=== PATIENT | male | born 1950 ===

== ENCOUNTER → 2018-07-08 06:14 | Day surgery (SDC) | payer MEDICARE, BC ==
--- NOTE | 2018-06-29 00:16 | HP ---
AMENDED REPORT NOW INCLUDES DESIGNATED COSIGNER CC: Dr. Caldwell, [place]; Dr. Alberto Clarke; Dr. Daniel, [facility] * ADMISSION HISTORY AND PHYSICAL: DATE OF ADMISSION: 07/08/18 PRIMARY CARE PHYSICIAN: Dr. Caldwell. ATTENDING SURGEON: Dr. Ede Black.* (DICTATED BY KAMALA MERA) CHIEF COMPLAINT: Nonhealing left scapular wound. HISTORY OF PRESENT ILLNESS: This is a 68-year-old male, who underwent excision of a melanoma of the left scapula in February of 2017 that was performed in [place]. He had the dehiscence of the wound and has been treated through the wound center with wound VAC but the wound has continued to reopen. He had been seen by Dr. Black in the spring and more recently on 06/14/18, at which time, the wound which was only open superficially but over an area up to 6 cm wide and 15 cm in length. Recommendations were made for excision of the wound and closure and it was felt that this could be accomplished as a primary closure most likely. The patient understands there is also possibility of requiring a skin graft. Currently, the wound is being treated with topical dressing with bacitracin. PAST MEDICAL HISTORY: Stroke in 2017 with resultant memory loss and left-sided weakness though he has made progress and can ambulate with a cane or walker. He has a history of coronary artery disease status post DC and a history of hypertension and bradycardia. He does have an implanted event monitor. He was seen for Cardiology evaluation by Dr. Clarke and no further workup was deemed necessary for his upcoming surgery (see separate consult). He has significant peripheral edema and has had cellulitis in the past including a positive MRSA infection of the left ankle though no current problem with infection. He is diabetic and is also treated for depression. He is blind in the left eye. He is treated for GERD. PAST SURGICAL HISTORY: Excision of melanoma with sentinel lymph node biopsy, 2016. He apparently also underwent an open partial hepatectomy for a hepatocellular carcinoma also in [place]. His understanding is that both cancers were early stage and there is no active disease. CURRENT MEDICATIONS: 1. Flomax 0.4 mg once daily at h.s. 2. Florastor 1 tablet b.i.d. 3. Gabapentin 100 mg q.h.s. 4. Lantus 14 units subcutaneously q.h.s. 5. Lasix 60 mg q.a.m. 6. Losartan 100 mg q. day. 7. Pepcid 20 mg b.i.d. 8. Senna 2 tablets q.h.s. 9. Aspirin 325 mg q. day (to be continued perioperatively). 10. Atorvastatin 10 mg q.h.s. 11. Colace 100 mg b.i.d. 12. Duloxetine 60 mg q. day. 13. Dulcolax and milk of magnesia p.r.n. DRUG ALLERGIES: NOVOCAIN (increased heart rate). FAMILY HISTORY: Noncontributory in terms of anesthesia problems, bleeding or a clotting disorder. SOCIAL HISTORY: The patient is currently a resident at [facility]. He denies use of tobacco, alcohol, or recreational drugs. REVIEW OF SYSTEMS: General: No recent constitutional symptoms or acute illnesses other than described above. He states that his weight is fairly stable in that a large portion of it is fluid retention. HEENT: No problems reported other than blindness in the left eye. Cardiovascular: As above. See also attached Cardiology evaluation. Respiratory: No history of chronic cough , shortness of breath, asthma, or COPD. GI: History of GERD. I did not inquire regarding colonoscopy or lower GI symptoms. He apparently does have a history of constipation. History of hepatocellular carcinoma as noted above. : No problems reported other than he is treated for BPH. Endocrine: He is treated for diabetes. No history of thyroid dysfunction. PHYSICAL EXAMINATION GENERAL: Well-nourished, obese male, seated in the wheelchair, in no acute distress. VITAL SIGNS: Height 5 feet 7 inches, weight 260 pounds. Temperature 96.7, blood pressure 124/70, pulse 58, respirations 16. HEENT: Right pupil reactive. EOMs intact. Oropharynx: No intraoral lesions. NECK: No lymphadenopathy, thyromegaly, or masses. LUNGS: Clear to auscultation. No rales or wheezes. HEART: Regular rate and rhythm. No murmur appreciated. There is a palpable implanted event monitor in the left lower chest subcutaneously. ABDOMEN: Obese, soft, nontender to palpation. No palpable masses or organomegaly though exam is limited. There is a well-healed right upper quadrant incision. BACK: No spinous process or CVA tenderness. EXTREMITIES: 1 to 2+ edema though he does have compression stockings in place. By history, there are no open lesions at the present time. Peripheral pulses were not checked. NEUROLOGICAL: He is oriented though states he has poor memory for details such as names and dates. He has some weakness and dysarthria of the left upper extremity and some generalized weakness in the left lower extremity, but he is able to stand on his own with limited assistance. Specific neurological exam not performed. SKIN: Warm and dry. He does have a facial rash. No suspicious rashes or lesions. See also above in the HPI per Dr. Black's description of the left scapular wound. IMPRESSION: Nonhealing left scapular wound. PLAN: Excision and closure of nonhealing left scapular wound (with possible skin graft). KAMALA MERA [id number]/[facility] #: [id number] BUTCH
[~2018-07-08 06:14] MED LIST: Atracurium* 10 MG/ML 10 ML VIAL ONE; Bacitracin OINTMENT* 0.5% 0.5 oz TUBE ONE; Buffered Lidocaine 0.9% SYRIN* 5 ML/SYR SYRINGE INTRADERM ONE; Bupivacaine 0.25% SDV* 30 ML ONE; DiMENhydriNATE IV* 50 MG/ML VIAL IV PUSH PRN; EPHEDrine (Pressors)* 50 MG/ML VIAL ONE; Famotidine IV* 10 MG/ML 2 ML (20 mg) IV ONE; Glycopyrrolate IV* 0.2 MG/ML 1 ML VIAL ONE; KETAMINE HCL* 50 MG/ML 10 ML VIAL ONE; Lidocaine 1% MPF wEPI 200,000* 30 ML SDV ONE; Lidocaine 2% JELLY* 6 ML JELLY TOPICAL ONE; Lidocaine 2% PF * 5 ML VIAL ONE; Midazolam* 1 MG/ML 5 ML VIAL (5 MG) ONE; Morphine VIAL* 4 MG/ML VIAL (1 ml vial) IV PRN; Naloxone* 0.4 MG/ML 1 ML VIAL IV PRN; Neostigmine Methylsulfate* 1 MG/ML 10 ML VIAL (1 mg/ml) ONE; Ondansetron ODT TAB* 4 MG ONE; Ondansetron TAB* 4 MG PO ONE; PROCHLORPERAZINE INJ 5 MG/ML 2 ML VIAL IV PRN; Phenylephrine INJ* 10 MG/ML 1 ML VIAL (10 MG) ONE; Propofol* 10 MG/ML 20 ML BTL IV PUSH ONE; ceFAZolin 1 GM VIAL(*) ONE; ceFAZolin 2 GM PREMIX in ORs 0 GM/0 ML BAG IVPB ONE; fentaNYL* 50 MCG/ML 2 ML VIAL (100 MCG VIAL) IV PRN; fentaNYL* 50 MCG/ML 2 ML VIAL (100 MCG VIAL) ONE; oxyCODONE/Acetamin 5/325 MG* TAB PO PRN
[2018-07-08 11:11] VITALS: BP 147/73
--- NOTE | 2018-07-09 09:40 | OP ---
CC: Dr. Александр Caldwell; Dr. Danile in the [facility] * DATE OF OPERATION: 07/08/18 - [facility] DATE OF : 52 SURGEON: Ede Black MD FIELD NATURALIST: None. ANESTHESIOLOGIST: Dr. Bolton. ANESTHESIA: General anesthetic. PRE-OP DIAGNOSIS: Nonhealing wound of left scapular region. POST-OP DIAGNOSIS: Nonhealing wound of left scapular region. OPERATIVE PROCEDURE: Excision of nonhealing wound with primary closure. DESCRIPTION OF PROCEDURE: The patient under general anesthetic was placed in the prone position, appropriately padded and positioned and the left scapular region and back were prepped with antiseptic, draped in a sterile fashion. Elliptical incision approximately 8 x 15 cm was created and the entire previous open wound was excised down to the muscle fascia. This was sent in formalin to pathologic evaluation. Flaps were undermined inferior and superiorly and then closure was accomplished using [id number] 2-0 Vicryl for the subdermal tissues and then 2-0 Prolene vertical mattress for the skin followed by antibiotic ointment and a gauze dressing. He was brought to recovery in good condition. There were no complications. No drains. Pathologic specimen is wound excision. Complications none. Estimated blood loss less than 50 mL. [id number]/[facility] #: [id number] [facility] HOSPITALMyranda
== END | disposition home or self-care (01) ==
LOC: OR 06:14
PROVIDERS: ATTEND Surgery
DX: L98.498 Non-pressure chronic ulcer of skin of other sites with other specified severity (principal); T81.89XA Other complications of procedures, not elsewhere classified, initial encounter; Z85.820 Personal history of malignant melanoma of skin; Z85.05 Personal history of malignant neoplasm of liver; I25.2 Old myocardial infarction; I69.254 Hemiplegia and hemiparesis following other nontraumatic intracranial hemorrhage affecting left non-dominant side; I25.10 Atherosclerotic heart disease of native coronary artery without angina pectoris; I10 Essential (primary) hypertension; R00.1 Bradycardia, unspecified; E11.9 Type 2 diabetes mellitus without complications; Z79.4 Long term (current) use of insulin; F32.9 Major depressive disorder, single episode, unspecified
CPT/HCPCS: 88305; A9270-GY; J0690; J2001; J2250; J2704; J2710; J3010

== ENCOUNTER → 2019-10-03 09:05 | Day surgery (SDC) | payer MEDICARE, BC ==
[~2019-10-03 09:05] MED LIST changes: -Atracurium* 10 MG/ML 10 ML VIAL ONE; -Bacitracin OINTMENT* 0.5% 0.5 oz TUBE ONE; -Buffered Lidocaine 0.9% SYRIN* 5 ML/SYR SYRINGE INTRADERM ONE; -Bupivacaine 0.25% SDV* 30 ML ONE; -DiMENhydriNATE IV* 50 MG/ML VIAL IV PUSH PRN; +Diazepam TAB(*) 5 MG PO ONE; -EPHEDrine (Pressors)* 50 MG/ML VIAL ONE; -Famotidine IV* 10 MG/ML 2 ML (20 mg) IV ONE; -Glycopyrrolate IV* 0.2 MG/ML 1 ML VIAL ONE; -KETAMINE HCL* 50 MG/ML 10 ML VIAL ONE; -Lidocaine 1% MPF wEPI 200,000* 30 ML SDV ONE; -Lidocaine 2% JELLY* 6 ML JELLY TOPICAL ONE; -Lidocaine 2% PF * 5 ML VIAL ONE; -Midazolam* 1 MG/ML 5 ML VIAL (5 MG) ONE; -Morphine VIAL* 4 MG/ML VIAL (1 ml vial) IV PRN; +NS 0.9% 1000 ML** 1,000 ML IV SCH; -Naloxone* 0.4 MG/ML 1 ML VIAL IV PRN; -Neostigmine Methylsulfate* 1 MG/ML 10 ML VIAL (1 mg/ml) ONE; -Ondansetron ODT TAB* 4 MG ONE; -Ondansetron TAB* 4 MG PO ONE; -PROCHLORPERAZINE INJ 5 MG/ML 2 ML VIAL IV PRN; -Phenylephrine INJ* 10 MG/ML 1 ML VIAL (10 MG) ONE; -Propofol* 10 MG/ML 20 ML BTL IV PUSH ONE; -ceFAZolin 1 GM VIAL(*) ONE; -ceFAZolin 2 GM PREMIX in ORs 0 GM/0 ML BAG IVPB ONE; +ceFAZolin VIAL 1 GM in NS *SYRINGE * * 10 ML ONE; +ceFAZolin* 2 GM* ONE DOSE (Duplex) IVPB; -fentaNYL* 50 MCG/ML 2 ML VIAL (100 MCG VIAL) IV PRN; -fentaNYL* 50 MCG/ML 2 ML VIAL (100 MCG VIAL) ONE; -oxyCODONE/Acetamin 5/325 MG* TAB PO PRN
[2019-10-03 10:22] VITALS: BP 146/70
== END | disposition home or self-care (01) ==
LOC: CHICATH 09:05
PROVIDERS: ATTEND Specialist
DX: R00.1 Bradycardia, unspecified (principal); I48.91 Unspecified atrial fibrillation; Z79.01 Long term (current) use of anticoagulants; Z53.09 Procedure and treatment not carried out because of other contraindication
CPT/HCPCS: J0690

== ENCOUNTER 2019-10-10 11:02 | Observation (INO) | payer MEDICARE, BC ==
[2019-10-10] MEDS ORDERED: ceFAZolin 1 GM/10 ML flush(*) SYRINGE for pocket flush (cardiology) FLUSH ONE (12:00)
[2019-10-10] MEDS ORDERED: Diazepam TAB(*) 5 MG PO ONE (12:00)
[2019-10-10] MEDS ORDERED: ceFAZolin* 2 GM* ONE DOSE (Duplex) IVPB (12:00)
[2019-10-10] MEDS ORDERED: NS 0.9% 1000 ML** 1,000 ML IV SCH (12:00)
[2019-10-10] MEDS ORDERED: Diazepam TAB(*) 5 MG ONE (12:31)
[2019-10-10] MEDS ORDERED: ceFAZolin 2 GM in NS 100 ml - ONCE (Pharmacy Admix) IVPB ONE (13:00)
[2019-10-10] MEDS ORDERED: Lidocaine 1% INJ* 10 MG/ML 30 ML SDV ONE (13:36)
[2019-10-10] MEDS ORDERED: Naloxone* 0.4 MG/ML 1 ML VIAL ONE (13:37)
[2019-10-10] MEDS ORDERED: fentaNYL* 50 MCG/ML 2 ML VIAL (100 MCG VIAL) ONE (13:37)
[2019-10-10] MEDS ORDERED: Midazolam* 1 MG/ML 5 ML VIAL (5 MG) ONE (13:37)
[2019-10-10] MEDS ORDERED: Flumazenil* 0.1 MG/ML 5 ML MDV ONE (13:38)
[2019-10-10] MEDS ORDERED: oxyCODONE/Acetamin 5/325 MG* TAB PO PRN (14:53)
[2019-10-10] MEDS ORDERED: Acetaminophen TAB* 325 MG PO PRN (14:53)
[2019-10-10] MEDS: ceFAZolin 1 GM ADVAN(*) 1 GM in NS 0.9% 50 ML* 50 ML IVPB SCH (23:00)
--- NOTE | 2019-10-11 02:13 | OP ---
DATE OF OPERATION: 10/10/19 - ROOM #449 DATE OF : 52 SURGEON: Alberto Clarke MD ANESTHESIA: Local anesthesia with conscious sedation. PRE-OP DIAGNOSIS: Bradycardia. POST-OP DIAGNOSIS: Bradycardia. OPERATIVE PROCEDURE: Dual chamber pacemaker implantation. INDICATIONS: The patient is a 69-year-old gentleman who has had an event monitor implanted when he was living down in [facility]. The patient is now at [facility] [place]. His device was interrogated and shown to have significant episodes of bradycardia when awake as well as asleep. He does have a history of sleep apnea. His lowest heart rate while awake was down to 29 beats per minute. He does have episodes of lightheadedness and dizziness. Dual chamber pacemaker was recommended. ESTIMATED BLOOD LOSS: Nil. COMPLICATIONS: None. DESCRIPTION OF PROCEDURE: The patient was brought to the procedure room in a fasting state. Informed consent had been obtained prior to the procedure. All labs were reviewed. The patient was placed supine on the procedure table. His left deltopectoral area was cleaned and draped in usual fashion. 1% lidocaine was used for local anesthesia. Under ultrasound guidance, the axillary vein was entered via Seldinger technique and a guidewire was placed. The second guidewire was placed with the same technique. A 3.5 cm incision was made in the pectoral area. Blunt dissection was carried down to the pectoral fascia. A pocket was fashioned for the pacemaker. Over the first guidewire, a 7-Macedonian sheath introducer was placed through which a right ventricular lead was advanced to the RV apex. The right ventricular lead is a Medtronic model 5076, serial #[id number] and had a R-wave sensitivity of 10, impedance 927 ohms, threshold 0.6 volts at 0.5 milliseconds. The ventricular lead was sutured to the pectoral fascia. Over the second guidewire, a 7-Macedonian sheath introducer was placed through which a right atrial lead was advanced to the high right atrium. The right atrial lead is a Medtronic model 5076, serial #[id number]. It had a P-wave sensitivity of 1.7, impedance 583 ohms, threshold 1.2 volts at 0.5 milliseconds. The atrial lead was sutured to the pectoral fascia. The pocket was flushed with antibiotic infused normal saline. The generator was attached appropriately to the atrioventricular lead. The generator is a Medtronic model W1DR01, serial #[id number]. The device was placed in the pocket. The surgical incision was closed in 3 layers. The patient was returned to holding area in stable condition. [id number]/[facility] #: [id number] BUTCH
[2019-10-11] MEDS: ceFAZolin 1 GM ADVAN(*) 1 GM in NS 0.9% 50 ML* 50 ML IVPB SCH ×2 (06:23→13:01)
--- NOTE | 2019-10-11 11:41 | DS ---
CC: Александр Caldwell MD at [facility] * DATE OF ADMISSION: 10/10/2019. DATE OF DISCHARGE: 10/11/2019. INDICATION FOR ADMISSION: Dual chamber pacemaker implantation. HISTORY OF PRESENT ILLNESS: Please see history and physical for details of this patient's presentation. This patient is a 69-year-old gentleman with a history of bradycardia and history of tachybrady syndrome. This was noted on his implanted event monitor that was done down in the [facility] area. This was interrogated and found to have severe bradycardia down to 30 beats per minute, as well as episodes of tachycardia up to 109. Dual chamber pacemaker was recommended. SUMMARY OF HOSPITAL COURSE: The patient was brought to the procedure room in a fasting state. Informed consent had been obtained prior to the procedure. The patient underwent dual chamber pacemaker implantation. This was with a Medtronic dual chamber device. This went without incident. The patient was observed overnight. He had issues overnight. The patient was comfortable this morning. An interrogation of his dual chamber pacemaker showed normal function of his pacemaker. Of note, the patient did have a chest x-ray here at the hospital which was concerning for two pulmonary nodules, one in the left lung and one in the right lung that were not present on previous chest x-rays. This will be followed up as an outpatient as [facility]. I will see the patient in follow-up. DISCHARGE MEDICATIONS: 1. Lasix 60 mg a day. 2. Lantus insulin 100 units. 3. Pepcid 20 mg twice a day. 4. Simvastatin 10 mg a day. 5. Flomax 0.4 mg a day. 6. Valsartan 160 mg a day. 7. Aspirin 325. 8. Tylenol as needed. 9. Gabapentin 100 mg at bedtime. 10. Florastor 250 mg twice a day. 11. Losartan 100 mg a day. 12. Eliquis will be restarted tonight at its previous dose. 13. The patient was started on Keflex 250 mg three times a day for 3 days. Of note: The patient's medication therapy should be exactly the same as the one from the half-way before he came to the hospital; there should be no changes, except for the addition of Keflex for three day. ALLERGIES: NOVOCAINE. PHYSICAL EXAMINATION: Today on physical exam, vital signs are stable; temperature 97.9, heart rate 67, blood pressure 135/68, respiratory rate 20. Carotids are 2+ without bruits. JVD is normal. Thyroid is normal. Cardiac: S1, S2 without any murmurs, rubs or gallops. Lungs are clear to auscultation. Extremities show 2+ edema and stable. His pacemaker site is clean, dry, and intact. There is no erythema. A dressing was applied. DISPOSITION: Patient will return to [facility]. FOLLOW-UP: I will see the patient in follow-up in ten days for staple removal. I will contact Dr. Caldwell about getting follow-up on his chest x-ray and the pulmonary nodules. The patient will likely need a CAT scan as an outpatient. [id number]/[facility] #: [id number] [facility]
[2019-10-11 11:59] VITALS: BP 132/66
== END 2019-10-11 14:12 | disposition home or self-care (01) ==
LOC: CHICATH 11:02 → MEDTELE 14:53
PROVIDERS: ADMIT Specialist; ATTEND Specialist
DX: R00.1 Bradycardia, unspecified (principal); I48.91 Unspecified atrial fibrillation; I25.10 Atherosclerotic heart disease of native coronary artery without angina pectoris; I25.2 Old myocardial infarction; F32.9 Major depressive disorder, single episode, unspecified; E10.9 Type 1 diabetes mellitus without complications; H54.40 Blindness, one eye, unspecified eye; R94.31 Abnormal electrocardiogram [ECG] [EKG]; E55.9 Vitamin D deficiency, unspecified; Z79.899 Other long term (current) drug therapy; Z86.73 Personal history of transient ischemic attack (TIA), and cerebral infarction without residual deficits; Z88.4 Allergy status to anesthetic agent; Z79.82 Long term (current) use of aspirin; Z79.4 Long term (current) use of insulin; R91.8 Other nonspecific abnormal finding of lung field
CPT/HCPCS: 33208; 71045; 71046; 87641; 93005; 96365; 99156; 99157; A9270-GY; C1785; C1892; C1898; G0378; J0690; J2250; J2310; J3010